=== PATIENT | female | born 1990 | race African-American/Black ===

== ENCOUNTER 2016-11-06 21:41 | Emergency (ER) | payer SELFPAY ==
[2016-11-06] MEDS ORDERED: Ketorolac Tromethamine 60 MG/2 ML VIAL ONE (22:49)
== END 2016-11-06 23:13 | disposition home or self-care (01) ==
LOC: MADERS 21:41
DX: L02.215 Cutaneous abscess of perineum (principal); L72.3 Sebaceous cyst
CPT/HCPCS: 56405; 87070; 87205; 96372; J1885; J2001

== ENCOUNTER 2017-01-13 20:56 | Emergency (ER) | payer SELFPAY ==
[2017-01-13] MEDS ORDERED: AMOXicillin 250 MG CAP ONE (21:22)
[2017-01-13] MEDS ORDERED: HYDROcodone/Acetaminophen 5/325 mg Tablet ONE (21:22)
[2017-01-13] MEDS ORDERED: Ibuprofen 600 MG TAB ONE (21:23)
== END 2017-01-13 22:05 | disposition home or self-care (01) ==
LOC: MADERS 20:56
DX: H66.93 Otitis media, unspecified, bilateral (principal); N39.0 Urinary tract infection, site not specified; F32.9 Major depressive disorder, single episode, unspecified
CPT/HCPCS: 99283

== ENCOUNTER 2017-03-15 13:12 | Emergency (ER) | payer SELFPAY ==
[2017-03-15] MEDS ORDERED: HYDROcodone/Acetaminophen 10/325 mg Tablet ONE (13:41)
[2017-03-15] MEDS ORDERED: Cyclobenzaprine 10 MG TAB ONE (13:41)
[2017-03-15 14:03] LABS: Bilirubin Negative (Negative); Blood, Urine Trace (Negative); Clarity Clear (Clear); Glucose, Urine (Dipstick) Negative (Negative); Leukocyte Negative (Negative); Nitrite Negative (Negative); Protein, Urine (Dipstick) Negative (Neg-Trace); Specific Gravity, Urine 1.025 (1.005-1.030); Urobilinogen 0.2 mg/dL (0.2-1.0)
[2017-03-15 14:06] LABS: Bacteria/HPF Rare-Few HPF (None Seen); WBC/HPF 0-3 HPF (0-3)
[2017-03-15 14:07] LABS: Pregnancy Test - Urine (BHCG) Negative (Negative); Pregu Control Background? CLEAR/WHITE (CLR/WHITE); Pregu Control Bar Appear? YES (CONTROL BAR); Specific Gravity 1.025 (1.002-1.036)
== END 2017-03-15 14:25 | disposition home or self-care (01) ==
LOC: MADERS 13:12
DX: M54.5 Low back pain (principal); F32.9 Major depressive disorder, single episode, unspecified
CPT/HCPCS: 81003; 81015; 81025; 99283

== ENCOUNTER → 2017-09-08 | Emergency (ER) | payer SELFPAY ==
[~2017-09-08] MED LIST: Acetaminophen 500 MG TAB ONE; Ondansetron ODT 4 MG TAB ONE
--- NOTE | 2017-09-08 22:01 | RAD ---
LEFT KNEE FOUR VIEWS: 09/08/17 HISTORY: History of dislocation of left knee in April. Pain has been worse the last few days. There is no signs of fracture, dislocation, or joint effusion. IMPRESSION: Unremarkable left knee. POS: [facility]
== END ==
LOC: MADERS 20:58
DX: M25.562 Pain in left knee (principal); R11.2 Nausea with vomiting, unspecified; F32.9 Major depressive disorder, single episode, unspecified
CPT/HCPCS: Q0162

== ENCOUNTER 2017-10-06 14:12 | Emergency (ER) | payer SELFPAY ==
[2017-10-06 14:51] LABS: Bilirubin Negative (Negative); Blood, Urine Negative (Negative); Clarity Clear (Clear); Glucose, Urine (Dipstick) Negative (Negative); Leukocyte Negative (Negative); Nitrite Negative (Negative); Pregnancy Test - Urine (BHCG) Negative (Negative); Pregu Control Background? CLEAR/WHITE (CLR/WHITE); Pregu Control Bar Appear? YES (CONTROL BAR); Protein, Urine (Dipstick) Trace mg/dL (Neg-Trace); Specific Gravity 1.025 (1.002-1.036); Specific Gravity, Urine 1.025 (1.005-1.030); Urobilinogen 0.2 mg/dL (0.2-1.0); pH, Urine 6.5 (5.0-9.0)
[2017-10-06] MEDS ORDERED: Promethazine HCl 25 MG/ML VIAL ONE (15:00)
== END 2017-10-06 15:25 | disposition home or self-care (01) ==
LOC: MADERS 14:12
DX: K52.9 Noninfective gastroenteritis and colitis, unspecified (principal); F32.9 Major depressive disorder, single episode, unspecified
CPT/HCPCS: 81003; 81025; 99284; J2550

== ENCOUNTER 2018-02-03 16:28 | Emergency (ER) | payer SELFPAY ==
[2018-02-03] MEDS ORDERED: predniSONE 20 MG TAB ONE (16:46)
== END 2018-02-03 16:55 | disposition home or self-care (01) ==
LOC: MADERS 16:28
DX: J20.9 Acute bronchitis, unspecified (principal); F32.9 Major depressive disorder, single episode, unspecified
CPT/HCPCS: 99283; J7506

== ENCOUNTER 2018-09-02 09:00 | Emergency (ER) | payer SELFPAY ==
[2018-09-02 10:10] LABS: Bilirubin Negative (Negative); Blood, Urine Small (Negative); Glucose, Urine (Dipstick) Negative (Negative); Leukocyte Negative (Negative); Nitrite Negative (Negative); Protein, Urine (Dipstick) Negative (Neg-Trace); Urobilinogen 0.2 mg/dL (0.2-1.0)
[2018-09-02 10:11] LABS: Pregnancy Test - Urine (BHCG) Negative (Negative); Pregu Control Background? CLEAR/WHITE (CLR/WHITE); Pregu Control Bar Appear? YES (CONTROL BAR); Specific Gravity 1.028 (1.002-1.036)
[2018-09-02 10:12] LABS: Clarity Hazy (Clear); Specific Gravity, Urine 1.028 (1.002-1.036)
[2018-09-02 10:16] LABS: WBC/HPF 0-3 HPF (0-3)
[2018-09-02 10:17] LABS: Bacteria/HPF Rare-Few HPF (None Seen)
[2018-09-02] MEDS ORDERED: Ketorolac Tromethamine 30 MG/ML VIAL ONE (10:28)
== END 2018-09-02 10:46 | disposition home or self-care (01) ==
LOC: MADERS 09:00
DX: R10.30 Lower abdominal pain, unspecified (principal); F32.9 Major depressive disorder, single episode, unspecified
CPT/HCPCS: 81003; 81015; 81025; 96372; J1885

== ENCOUNTER 2019-01-12 14:47 | Outpatient (CLI) | payer OTHER ==
--- NOTE | 2019-01-12 15:59 | CT ---
CT Chest WO Con History: Costochondral junctions syndrome Comparison: Radiograph 2015 Findings: Lungs are clear. No pneumothorax. No effusion. No airspace consolidation. Thyroid is unremarkable. No mediastinal adenopathy. Limited evaluation of the upper abdomen is unrema rkable. Thoracic spine is without compression fracture. Sternum and manubrium are intact. Clavicles are intact. The costal cartilage is intact. Impression: Normal CT examination of the chest.
== END 2019-01-12 14:48 | disposition home or self-care (01) ==
LOC: MADCT 14:47
PROVIDERS: ATTEND Family Medicine
DX: M94.0 Chondrocostal junction syndrome [Tietze] (principal)
CPT/HCPCS: 71250

== ENCOUNTER 2019-02-19 16:20 | Emergency (ER) | payer OTHER, SELFPAY | END 2019-02-19 17:00 | disposition home or self-care (01) | LOC: MADERS 16:20 | DX: M25.562 Pain in left knee (principal) | CPT/HCPCS: 99283 ==

== ENCOUNTER 2019-04-26 14:52 | Outpatient (CLI) | payer OTHER ==
--- NOTE | 2019-04-26 15:18 | RAD ---
EXAM: PA chest and right RIBS: 4 views INDICATIONS: Rib injury COMPARISON: None. FINDINGS: Lung aranda are clear. Heart and mediastinum unremarkable. Right ribs appear intact. No fracture or osseous abnormality identified. Small metallic BB overlies medial right lung field. This cannot be further localized. A lateral view was not obtained. IMPRESSION: No acute finding
== END 2019-04-26 14:53 | disposition home or self-care (01) ==
LOC: MADRAD 14:52
PROVIDERS: ATTEND Family Medicine
DX: R07.81 Pleurodynia (principal)

== ENCOUNTER 2019-05-22 16:43 | Emergency (ER) | payer OTHER | END 2019-05-22 17:05 | disposition home or self-care (01) | LOC: MADERS 16:43 | DX: R19.7 Diarrhea, unspecified (principal); R11.0 Nausea | CPT/HCPCS: 99281 ==

== ENCOUNTER 2019-09-11 08:11 | Outpatient (CLI) | payer OTHER ==
--- NOTE | 2019-09-11 13:46 | ULT ---
EXAM: PELVIC UTLRASOUND INCLUDING TRANSABDOMINAL, TRANSVAGINAL, AND VASCULAR DUPLEX WITH COLOR AND SPECTRAL DOPPLER IMAGIN09/11/19 HISTORY: Dysfunctional uterine bleeding. FINDINGS: The uterus measures 6.4 x 4.3 x 3.0 cm. Endometrium 0.3 cm. Left ovary 3.2 x 1.7 x 2.3 cm. Right ovary 3.2 x 1.5 x 2.5 cm. No evidence for abscess or abnormal fluid collection. No intrauterine mass. Vascular duplex demonstrates vascular flow involving both ovaries. No evidence for ovarian torsion. IMPRESSION: Unremarkable pelvic ultrasound. POS: [facility]
== END 2019-09-11 08:12 | disposition home or self-care (01) ==
LOC: MADULT 08:11
PROVIDERS: ATTEND Family Medicine
DX: N93.8 Other specified abnormal uterine and vaginal bleeding (principal)
CPT/HCPCS: 76856

== ENCOUNTER 2020-11-29 21:07 | Emergency (ER) | payer OTHER ==
[2020-11-29] MEDS ORDERED: Clindamycin 150 MG CAP ONE (22:47)
== END 2020-11-29 22:59 | disposition home or self-care (01) ==
LOC: MADERS 21:07
DX: N76.4 Abscess of vulva (principal)
CPT/HCPCS: 99283

== ENCOUNTER 2021-10-13 16:55 | Outpatient (CLI) | payer BC | END 2021-10-13 16:56 | disposition home or self-care (01) | LOC: MADRAD 16:55 | PROVIDERS: ATTEND Family Medicine | DX: M94.0 Chondrocostal junction syndrome [Tietze] (principal) | CPT/HCPCS: 71120 ==

== ENCOUNTER 2021-12-13 08:34 | Emergency (ER) | payer BC ==
[2021-12-13 09:07] LABS: Bilirubin Negative (Negative); Blood, Urine Large (Negative); Glucose, Urine (Dipstick) Negative (Negative); Ketone, Urine Negative (Negative); Leukocyte Negative (Negative); Nitrite Negative (Negative); Protein, Urine (Dipstick) Negative (Neg-Trace); Specific Gravity, Urine 1.015 (1.005-1.030); Urobilinogen 0.2 mg/dL (Less than 2); pH, Urine 6.5 (5.0-9.0)
[2021-12-13 09:08] LABS: Clarity Hazy (Clear); Pregnancy Test - Urine (BHCG) Negative (Negative); Pregu Control Background? CLEAR/WHITE (CLR/WHITE); Pregu Control Bar Appear? YES (CONTROL BAR); Specific Gravity 1.015 (1.002-1.036)
[2021-12-13 09:20] LABS: Bacteria/HPF Rare-Few HPF (None Seen); RBC/HPF 0-3 HPF (0-3); WBC/HPF 0-3 HPF (0-3)
== END 2021-12-13 09:25 | disposition home or self-care (01) ==
LOC: MADERS 08:34
DX: N93.9 Abnormal uterine and vaginal bleeding, unspecified (principal)
CPT/HCPCS: 81003; 81015; 81025; 99284

== ENCOUNTER 2022-01-27 20:07 | Emergency (ER) | payer BC ==
[2022-01-27 20:42] LABS: Bilirubin Negative (Negative); Blood, Urine Negative (Negative); Clarity Slightly Cloudy (Clear); Glucose, Urine (Dipstick) Negative (Negative); Ketone, Urine 15 mg/dL (Negative); Leukocyte Trace (Negative); Nitrite Negative (Negative); Protein, Urine (Dipstick) Negative (Neg-Trace); Specific Gravity, Urine 1.025 (1.005-1.030); Urobilinogen 0.2 mg/dL (Less than 2); pH, Urine 6.5 (5.0-9.0)
[2022-01-27 20:43] LABS: Bacteria/HPF 2+ HPF (None Seen); RBC/HPF 0-3 HPF (0-3); Squamous Epithelial 21-50 HPF (0-3)
[2022-01-27] MEDS ORDERED: Cephalexin 500 MG CAP ONE (21:13)
[2022-01-27] MEDS ORDERED: predniSONE 20 MG TAB ONE (21:13)
== END 2022-01-27 21:18 | disposition home or self-care (01) ==
LOC: MADERS 20:07
DX: N39.0 Urinary tract infection, site not specified (principal); J30.9 Allergic rhinitis, unspecified; Z20.822 Contact with and (suspected) exposure to COVID-19
CPT/HCPCS: 81003; 81015; 99283; J7512; U0003; U0005

== ENCOUNTER 2022-06-11 18:48 | Emergency (ER) | payer BC, SELFPAY | END 2022-06-11 19:17 | disposition home or self-care (01) | LOC: MADERS 18:48 | DX: J06.9 Acute upper respiratory infection, unspecified (principal); F17.290 Nicotine dependence, other tobacco product, uncomplicated | CPT/HCPCS: 99283 ==

== ENCOUNTER 2022-11-10 10:38 | Emergency (ER) | payer SELFPAY ==
[2022-11-10 11:27] LABS: Bilirubin Negative (Negative); Blood, Urine Small (Negative); Glucose, Urine (Dipstick) Negative (Negative); Ketone, Urine Trace mg/dL (Negative); Leukocyte Small (Negative); Nitrite Positive (Negative); Protein, Urine (Dipstick) 30 mg/dL (Neg-Trace)
[2022-11-10 11:29] LABS: Clarity Cloudy (Clear); Specific Gravity, Urine 1.023 (1.002-1.036)
[2022-11-10 11:30] LABS: Pregnancy Test - Urine (BHCG) Negative (Negative); Pregu Control Background? CLEAR/WHITE (CLR/WHITE); Pregu Control Bar Appear? YES (CONTROL BAR); Specific Gravity 1.023 (1.002-1.036)
[2022-11-10 11:35] LABS: Bacteria/HPF 1+ HPF (None Seen); CAUTI Indications for Culture Dysuria,urgency,freq; Mucous/LPF 2+ LPF (<2+); WBC/HPF 21-50 HPF (0-3)
[2022-11-10 11:36] LABS: Urine Culture Reflex Yes Yes
== END 2022-11-10 11:47 | disposition home or self-care (01) ==
LOC: MADERS 10:38
DX: R20.2 Paresthesia of skin (principal); N39.0 Urinary tract infection, site not specified; F17.290 Nicotine dependence, other tobacco product, uncomplicated
CPT/HCPCS: 81001; 81025; 87077; 87086; 87186; 99284

== ENCOUNTER 2024-02-08 12:03 | Emergency (ER) | payer OTHER | END 2024-02-08 12:48 | disposition left against medical advice (07) | LOC: MADERS 12:03 | DX: Z53.21 Procedure and treatment not carried out due to patient leaving prior to being seen by health care provider (principal) ==

== ENCOUNTER 2024-02-09 16:52 | Emergency (ER) | payer OTHER ==
[2024-02-09] MEDS ORDERED: Ketorolac Tromethamine 30 MG (1 mL) VIAL ONE (17:49)
== END 2024-02-09 18:34 | disposition home or self-care (01) ==
LOC: MADERS 16:52
DX: G56.01 Carpal tunnel syndrome, right upper limb (principal); M25.521 Pain in right elbow; F17.290 Nicotine dependence, other tobacco product, uncomplicated; Z55.6 Problems related to health literacy
CPT/HCPCS: 96372; 99283; J1885

== ENCOUNTER 2024-03-12 18:36 | Emergency (ER) | payer OTHER ==
[2024-03-12] MEDS ORDERED: Ibuprofen 600 MG TAB ONE (18:59)
[2024-03-12 19:14] LABS: #Basophils 0.1 thou/uL (0.0-0.2); #Eosinophils 0.1 thou/uL (0.0-0.7); #Lymphocytes 2.4 thou/uL (1.20-3.40); #Monocytes 0.6 thou/uL (0.11-0.59); #Neutrophils 3.6 thou/uL (1.40-6.50); %Basophils 0.8 % (0.0-1.0); %Eosinophils 1.4 % (0.0-10.0); %Lymphocytes 35.3 % (21.0-51.0); %Monocytes 9.4 % (0.0-10.0); %Neutrophils 53.1 % (42.0-75.0); Anisocytosis SLIGHT = 6-15 cells (100X) (0-5/hpf); Hematocrit 37.2 % (36.0-47.0); Hemoglobin 12.5 g/dL (12.0-16.0); Hypochromia SLIGHT = 6-15 cells (100X) (0-5/hpf); MDiff Complete? YES; Macrocytosis SLIGHT = 6-15 cells (100X) (0-5/hpf); Mean Corpuscular HGB CONC 33.5 g/dL (32.0-36.0); Mean Corpuscular Hemoglobin 34.6 pg (27.0-31.0); Mean Corpuscular Volume 103.4 fl (78.0-98.0); Platelet Adequacy Comment Appears Adequate; Platelet Count 235 10x3/uL (130-400); RBC Distribution Width 11.3 % (11.5-14.5); White Blood Cell (WBC) Count 6.7 10x3/uL (4.8-10.8)
[2024-03-12 19:18] LABS: Anion Gap 14 mmol/L (10-20); BUN (Urea Nitrogen) 14 mg/dL (7.0-18.7); Calc. Creatinine Clearance 0 mL/min (70-130); Calcium 9.2 mg/dL (7.8-10.44); Carbon Dioxide 21 mmol/L (22-29); Chloride 108 mmol/L (98-107); Estimated GFR 95; Glucose 94 mg/dL (70-105); Potassium 3.3 mmol/L (3.5-5.1); Sodium 140 mmol/L (136-145)
[2024-03-12 19:28] LABS: Bilirubin Small (Negative); Blood, Urine Large (Negative); Glucose, Urine (Dipstick) Negative (Negative); Ketone, Urine Trace mg/dL (Negative); Leukocyte Negative (Negative); Nitrite Negative (Negative); Protein, Urine (Dipstick) > or equal to 300 mg/dL (Neg-Trace); Urobilinogen 0.2 mg/dL (Less than 2); pH, Urine 5.5 (5.0-9.0)
[2024-03-12 19:32] LABS: Pregnancy Test - Urine (BHCG) Negative (Negative); Pregu Control Background? CLEAR/WHITE (CLR/WHITE); Pregu Control Bar Appear? YES (CONTROL BAR); Specific Gravity 1.029 (1.002-1.036)
[2024-03-12 19:33] LABS: Clarity Bloody (Clear); Specific Gravity, Urine 1.029 (1.002-1.036)
[2024-03-12 19:34] LABS: Bacteria/HPF 2+ HPF (None Seen); CAUTI Indications for Culture Dysuria,urgency,freq; RBC/HPF Greater than 50 HPF (0-3); Squamous Epithelial 21-50 HPF (0-3)
[2024-03-12 19:35] LABS: Urine Culture Reflex No No
== END 2024-03-12 19:55 | disposition home or self-care (01) ==
LOC: MADERS 18:36
DX: N93.8 Other specified abnormal uterine and vaginal bleeding (principal)
CPT/HCPCS: 36415; 80048; 81001; 81025; 85025; 99284

== ENCOUNTER 2024-05-06 18:59 | Emergency (ER) | payer OTHER ==
[2024-05-06] MEDS ORDERED: Acetaminophen 500 MG TAB ONE (19:29)
[2024-05-06] MEDS ORDERED: AMOXicillin 250 MG CAP ONE (19:29)
== END 2024-05-06 19:36 | disposition home or self-care (01) ==
LOC: MADERS 18:59
DX: K08.89 Other specified disorders of teeth and supporting structures (principal); F17.290 Nicotine dependence, other tobacco product, uncomplicated
CPT/HCPCS: 99282

== ENCOUNTER 2025-01-09 08:26 | Emergency (ER) | payer OTHER ==
[2025-01-09] MEDS ORDERED: Ketorolac Tromethamine 30 MG (1 mL) VIAL ONE (08:57)
== END 2025-01-09 09:22 | disposition home or self-care (01) ==
LOC: MADERS 08:26
DX: J06.9 Acute upper respiratory infection, unspecified (principal); B97.89 Other viral agents as the cause of diseases classified elsewhere; F17.290 Nicotine dependence, other tobacco product, uncomplicated
CPT/HCPCS: 87426; 96372; 99283; J1885

== ENCOUNTER 2025-03-30 11:47 | Emergency (ER) | payer OTHER | END 2025-03-30 12:15 | disposition left against medical advice (07) | LOC: MADERS 11:47 | DX: Z53.21 Procedure and treatment not carried out due to patient leaving prior to being seen by health care provider (principal) ==

== ENCOUNTER 2025-04-30 08:28 | Emergency (ER) | payer OTHER ==
[2025-04-30 09:15] LABS: Glucose, Urine (Dipstick) Negative (Negative); Leukocyte Negative (Negative); Protein, Urine (Dipstick) Negative (Neg-Trace); Specific Gravity, Urine 1.020 (1.005-1.030)
[2025-04-30 09:18] LABS: Bacteria/HPF Rare-Few HPF (None Seen); CAUTI Indications for Culture Pelvic or flank pain; RBC/HPF 0-3 HPF (0-3); WBC/HPF 0-3 HPF (0-3)
[2025-04-30 09:19] LABS: Pregnancy Test - Urine (BHCG) POSITIVE (Negative); Pregu Control Background? CLEAR/WHITE (CLR/WHITE); Pregu Control Bar Appear? YES (CONTROL BAR); Urine Culture Reflex No No
== END 2025-04-30 09:21 | disposition home or self-care (01) ==
LOC: MADERS 08:28
DX: O99.891 Other specified diseases and conditions complicating pregnancy (principal); O99.331 Smoking (tobacco) complicating pregnancy, first trimester; M54.50 Low back pain, unspecified; F17.290 Nicotine dependence, other tobacco product, uncomplicated; Z3A.09 9 weeks gestation of pregnancy
CPT/HCPCS: 81001; 81025; 99283